=== PATIENT | male | born 1945 | race Caucasian/White ===

== ENCOUNTER 2016-11-04 12:16 | Observation (INO) | payer BC ==
[2016-11-04] MEDS ORDERED: Sodium Chloride 0.9% 10 ML Syringe FLUSH PRN ×2 (13:12→16:38)
--- NOTE | 2016-11-04 13:47 | CR ---
Chest 2V INDICATION: SOB, Bradycardia FINDINGS: Comparison 12/06/2010. The heart has increased in size and is now enlarged. Pulmonary vascu larity within normal limits. No focal infiltrate or pleural effusion.
--- NOTE | 2016-11-04 13:52 | EDM.PDOC ---
ED HPI GENERAL MEDICAL PROBLEM - General Chief Complaint: Respiratory Problem Stated Complaint: VERY SHORT OF BREATH Time Seen by Provider: 11/04/16 12:50 Source of Information: Reports: Patient History Limitations: Reports: No Limitations - History of Present Illness INITIAL COMMENTS - FREE TEXT/NARRATIVE: Patient presents today with complaints of not feeling well, becoming SOB with activity and weak. Onset: Today Onset Time: 08:00 Worsens with: Reports: Movement (He denies chest pain, syncope. ) - Related Data Allergies Allergy/AdvReac Type Severity Reaction Status Date / Time latex Allergy Rash Verified 11/04/16 12:32 Oybwoil-[id number]-Rnn Reductase AdvReac Muscle Verified 11/04/16 12:32 Inhibitor Aches Home Meds: Home Meds Citalopram Hydrobromide [Celexa] 10 tab PO DAILY 04/12/15 [History] Digoxin 125 mcg PO BID 04/12/15 [History] Insulin Aspart [NovoLOG] 10 units SQ ASDIRECTED 04/12/15 [History] Insulin Glarg,Human.Rec.Analog [Lantus Solostar] 56 unit SQ BEDTIME 04/12/15 [ History] Lisinopril 40 mg PO DAILY 04/12/15 [History] Metoprolol Tartrate 100 tab PO BID 04/12/15 [History] Tamsulosin [Flomax] 0.4 mg PO DAILY 04/12/15 [History] Verapamil HCl [Verapamil] 120 tab PO DAILY 04/12/15 [History] Warfarin [Coumadin] 5 tab PO DAILY 04/12/15 [History] Albuterol [Proventil HFA] 6.7 gm IN Q4HR PRN 11/04/16 [History] Aspirin [Lo-Dose Aspirin EC] 81 mg PO DAILY 11/04/16 [History] Finasteride [Proscar] 5 mg PO DAILY 11/04/16 [History] Tiotropium [Spiriva Handihaler] 18 mcg IN DAILY 11/04/16 [History] Past Medical History Cardiovascular History: Reports: Afib, High Cholesterol Respiratory History: Reports: COPD Genitourinary History: Reports: Other (See Below) Other Genitourinary History: kidney biopsy - Past Surgical History Musculoskeletal Surgical History: Reports: Arthroscopic Knee, Hip Replacement Social & Family History - Tobacco Use Smoking Status *Q: Never Smoker - Recreational Drug Use Recreational Drug Use: No ED ROS GENERAL - Review of Systems Review Of Systems: See Below Constitutional: Reports: Weakness. Denies: Fever, Chills, Malaise, Night Sweats , Diaphoresis HEENT: Reports: No Symptoms Respiratory: Reports: Shortness of Breath. Denies: Wheezing, Cough, Sputum, Hemoptysis Cardiovascular: Reports: Dyspnea on Exertion, Edema. Denies: Chest Pain, Lightheadedness, Orthopnea, Palpitations, PND, Syncope Endocrine: Reports: No Symptoms GI/Abdominal: Denies: Abdominal Pain, Constipation, Diarrhea, Nausea, Vomiting : Denies: Dysuria, Flank Pain, Frequency, Hematuria, Urgency, Urinary Retention Musculoskeletal: Reports: No Symptoms Skin: Reports: No Symptoms Neurological: Reports: Weakness. Denies: Confusion, Dizziness, Headache, Numbness, Paresthesia, Tingling, Change in Speech, Gait Disturbance Psychiatric: Reports: No Symptoms Hematologic/Lymphatic: Reports: No Symptoms Immunologic: Reports: No Symptoms ED EXAM, GENERAL - Physical Exam Exam: See Below Free Text/Narrative:: James presents today with complaints of SOB and weakness with activity. He states he has been using his [employer] vehicle to spray herbicide (Pastrure Pro) the past two days. He reports the vehicle has a cover and he does not come into direct contact with the spray. James states he has checked his blood glucose (113, 135) this am due to not feeling well. He also checked his blood pressure and pulse rate (HR 49). He reports his heart rate is usually faster. Exam Limited By: No Limitations General Appearance: Alert, WD/WN, No Apparent Distress Eye Exam: Bilateral Eye: EOMI, PERRL Ears: Normal External Exam, Normal Canal, Hearing Grossly Normal, Normal TMs Ear Exam: Bilateral Ear: Auricle Normal, Canal Normal, TM normal Nose: Normal Inspection, Normal Mucosa, No Blood Throat/Mouth: Normal Inspection, Normal Lips, Normal Teeth, Normal Gums, Normal Oropharynx, Normal Voice, No Airway Compromise Head: Atraumatic, Normocephalic Neck: Normal Inspection, Supple, Non-Tender, Full Range of Motion Respiratory/Chest: No Respiratory Distress, Lungs Clear, Normal Breath Sounds, No Accessory Muscle Use, Chest Non-Tender Cardiovascular: Bradycardia, Other (Murmur noted. ) Peripheral Pulses: 1+: Radial (L), Radial (R), Dorsalis Pedis (L), Dorsalis Pedis (R) GI/Abdominal: Normal Bowel Sounds, Soft, Non-Tender, No Organomegaly, No Distention, No Abnormal Bruit, No Mass, Other (Large round abdomen. ) Back Exam: Normal Inspection, Full Range of Motion. No: CVA Tenderness (R), CVA Tenderness (L) Extremities: Normal Inspection, Normal Range of Motion, Non-Tender, Normal Capillary Refill, Pedal Edema (Edema 1 to 2 +. ) Neurological: Alert, Oriented, CN II-XII Intact, Normal Cognition, Normal Gait, Normal Reflexes, No Motor/Sensory Deficits Psychiatric: Normal Affect, Normal Mood Skin Exam: Warm, Dry, Intact, Normal Color, No Rash Lymphatic: No Adenopathy EKG INTERPRETATION EKG Date: 11/04/16 Rhythm: A-Fib Rate (Beats/Min): 40 Course - Vital Signs Last Recorded V/S: Last Vital Signs Temp 36.6 C 11/04/16 16:38 Pulse 54 L 11/04/16 16:38 Resp 16 11/04/16 16:38 BP 147/79 H 11/04/16 16:38 Pulse Ox 94 L 11/04/16 16:38 - Orders/Labs/Meds Orders: Active Orders 24 hr Category Date Time Status Telemetry Monitoring [Cardiac Monitoring] [RC] .As Care 11/04/16 13:09 Inactive Directed EKG 12 Lead [EK] Routine Ther 11/04/16 13:09 Stop Req Medication Orders Acetaminophen (Tylenol) 650 mg PO Q4H PRN PRN Reason: Pain (Mild 1-3)/fever Albuterol (Ventolin Hfa) 0 gm INH Q4H PRN PRN Reason: breathing Albuterol (Proventil Neb Soln) 2.5 mg NEB Q4H PRN PRN Reason: Shortness Of Breath/wheezing Aspirin (Halfprin) 81 mg PO DAILY [facility] Citalopram Hydrobromide (Celexa) 0 mg PO DAILY [facility] Dextrose (Glutose 15) 15 gm PO ONETIME PRN PRN Reason: Hypoglycemia Dextrose/Water (Dextrose 50% In Water) 50 ml IV ONETIME PRN PRN Reason: Hypoglycemia Docusate Sodium (Colace) 100 mg PO BID PRN PRN Reason: Constipation Finasteride (Proscar) 5 mg PO DAILY [facility] Insulin Aspart (Novolog) 0 unit SUBCUT ASDIRECTED [facility] PRN Reason: Protocol Last Admin: 11/04/16 17:42 Dose: 2 units Insulin Detemir (Levemir) 56 unit SUBCUT BEDTIME [facility] Magnesium Hydroxide (Milk Of Magnesia) 30 ml PO Q12H PRN PRN Reason: Constipation Ondansetron HCl (Zofran) 4 mg IV Q4H PRN PRN Reason: Nausea/Vomiting Oxycodone HCl (Oxycodone) 5 mg PO Q4H PRN PRN Reason: Pain (moderate 4-6) Lisinopril 40mg Tabs (Pom) 0 each PO DAILY [facility] Polyethylene Glycol (Miralax) 17 gm PO DAILY PRN PRN Reason: Constipation Sodium Chloride (Saline Flush) 10 ml FLUSH ASDIRECTED PRN PRN Reason: Keep Vein Open Tamsulosin HCl (Flomax) 0.4 mg PO DAILY [facility] Tiotropium Marrero (Spiriva Handihaler) 18 mcg INH DAILY [facility] Warfarin Sodium (Coumadin) 5 mg PO SuTuWeThSa@1300 [facility] Warfarin Sodium (Coumadin) 0 mg PO MoFr@1300 [facility] Zolpidem Tartrate (Ambien) 5 mg PO BEDTIME PRN PRN Reason: Sleep Labs: Laboratory Tests 11/04/16 11/04/16 11/04/16 Range/Units 13:22 13:22 13:22 WBC 6.5 (4.5-11.0) K/uL RBC 5.23 (4.30-5.90) M/uL Hgb 16.2 H (12.0-15.0) g/dL Hct 48.2 (40.0-54.0) % MCV 92 (80-98) fL MCH 31 (27-31) pg MCHC 34 (32-36) % Plt Count 161 (150-400) K/uL Neut % (Auto) 70 H (36-66) % Lymph % (Auto) 18 L (24-44) % [place] % (Auto) 10 H (2-6) % Eos % (Auto) 2 (2-4) % Baso % (Auto) 0 (0-1) % PT (9.5-12.0) sec INR (0.80-1.20) APTT (27.0-36.0) sec Sodium 136 L (140-148) mmol/L Potassium 4.7 (3.6-5.2) mmol/L Chloride 101 (100-108) mmol/L Carbon Dioxide 30 (21-32) mmol/L Anion Gap 9.7 (5.0-14.0) mmol/L BUN 21 H (7-18) mg/dL Creatinine 1.3 (0.8-1.3) mg/dL Est Cr Clr Drug Dosing 55.37 mL/min Estimated GFR (MDRD) 55 L (>60) Glucose 127 H (74-106) mg/dL Calcium 8.5 (8.5-10.1) mg/dL Total Bilirubin 0.7 (0.2-1.0) mg/dL AST 23 (15-37) U/L ALT 23 (12-78) U/L Alkaline Phosphatase 113 (46-116) U/L Troponin I < 0.017 (0.000-0.056) ng/mL Xlw-D-Wmiqoozkiyx Pept 1043 H (5-125) pg/mL Total Protein 6.7 (6.4-8.2) g/dL Albumin 3.4 (3.4-5.0) g/dL Globulin 3.3 (2.3-3.5) g/dL Albumin/Globulin Ratio 1.0 L (1.2-2.2) TSH, Ultra Sensitive 2.579 (0.358-3.740) uIU/mL Urine Color Urine Appearance Urine pH (4.5-8.0) Ur Specific [place] (1.008-1.030) Urine Protein (NEGATIVE) mg/dL Urine Glucose (UA) (NEGATIVE) mg/dL Urine Ketones (NEGATIVE) mg/dL Urine Occult Blood (NEGATIVE) Urine Nitrite (NEGAITVE) Urine Bilirubin (NEGATIVE) Urine Urobilinogen (NORMAL) mg/dL Ur Leukocyte Esterase (NEGATIVE) Urine RBC (0-5) Urine WBC (0-5) Ur Epithelial Cells Amorphous Sediment Urine Bacteria Urine Mucus Digoxin 1.48 (0.90-2.00) ng/mL 11/04/16 11/04/16 Range/Units 13:22 13:22 WBC (4.5-11.0) K/uL RBC (4.30-5.90) M/uL Hgb (12.0-15.0) g/dL Hct (40.0-54.0) % MCV (80-98) fL MCH (27-31) pg MCHC (32-36) % Plt Count (150-400) K/uL Neut % (Auto) (36-66) % Lymph % (Auto) (24-44) % [place] % (Auto) (2-6) % Eos % (Auto) (2-4) % Baso % (Auto) (0-1) % PT 28.8 H (9.5-12.0) sec INR 2.59 H (0.80-1.20) APTT 33.6 (27.0-36.0) sec Sodium (140-148) mmol/L Potassium (3.6-5.2) mmol/L Chloride (100-108) mmol/L Carbon Dioxide (21-32) mmol/L Anion Gap (5.0-14.0) mmol/L BUN (7-18) mg/dL Creatinine (0.8-1.3) mg/dL Est Cr Clr Drug Dosing mL/min Estimated GFR (MDRD) (>60) Glucose (74-106) mg/dL Calcium (8.5-10.1) mg/dL Total Bilirubin (0.2-1.0) mg/dL AST (15-37) U/L ALT (12-78) U/L Alkaline Phosphatase (46-116) U/L Troponin I (0.000-0.056) ng/mL Wnq-[id number]-[id number] Pept (5-125) pg/mL Total Protein (6.4-8.2) g/dL Albumin (3.4-5.0) g/dL Globulin (2.3-3.5) g/dL Albumin/Globulin Ratio (1.2-2.2) TSH, Ultra Sensitive (0.358-3.740) uIU/mL Urine Color Yellow Urine Appearance Clear Urine pH 6.0 (4.5-8.0) Ur Specific [place] 1.010 (1.008-1.030) Urine Protein Negative (NEGATIVE) mg/dL Urine Glucose (UA) Normal (NEGATIVE) mg/dL Urine Ketones Negative (NEGATIVE) mg/dL Urine Occult Blood Negative (NEGATIVE) Urine Nitrite Negative (NEGAITVE) Urine Bilirubin Negative (NEGATIVE) Urine Urobilinogen Normal (NORMAL) mg/dL Ur Leukocyte Esterase Negative (NEGATIVE) Urine RBC Not seen (0-5) Urine WBC Not seen (0-5) Ur Epithelial Cells Not seen Amorphous Sediment Rare Urine Bacteria Not seen Urine Mucus Not seen Digoxin (0.90-2.00) ng/mL Meds: Medications Generic Name Dose Route Start Last Admin Trade Name Freq PRN Reason Stop Dose Admin Acetaminophen 650 mg 11/04/16 16:38 Tylenol PO Q4H PRN Pain (Mild 1-3)/fever Albuterol 0 gm 11/04/16 16:38 Ventolin Hfa INH Q4H PRN breathing Albuterol 2.5 mg 11/04/16 16:38 Proventil Neb Soln NEB Q4H PRN Shortness Of Breath/wheezing Aspirin 81 mg 11/05/16 09:00 Halfprin PO DAILY [facility] Citalopram Hydrobromide 0 mg 11/05/16 09:00 Celexa PO DAILY [facility] Dextrose 15 gm 11/04/16 16:38 Glutose 15 PO ONETIME PRN Hypoglycemia Dextrose/Water 50 ml 11/04/16 16:38 Dextrose 50% In Water IV ONETIME PRN Hypoglycemia Docusate Sodium 100 mg 11/04/16 16:38 Colace PO BID PRN Constipation Finasteride 5 mg 11/05/16 09:00 Proscar PO DAILY [facility] Insulin Aspart 0 unit 11/04/16 16:38 11/04/16 17:42 Novolog SUBCUT 2 units ASDIRECTED [facility] Administration Protocol Insulin Detemir 56 unit 11/04/16 21:00 Levemir SUBCUT BEDTIME [facility] Magnesium Hydroxide 30 ml 11/04/16 16:38 Milk Of Magnesia PO Q12H PRN Constipation Ondansetron HCl 4 mg 11/04/16 16:38 Zofran IV Q4H PRN Nausea/Vomiting Oxycodone HCl 5 mg 11/04/16 16:38 Oxycodone PO Q4H PRN Pain (moderate 4-6) Lisinopril 40mg Tabs 0 each 11/05/16 09:00 Pom PO DAILY [facility] Polyethylene Glycol 17 gm 11/04/16 16:38 Miralax PO DAILY PRN Constipation Sodium Chloride 10 ml 11/04/16 16:38 Saline Flush FLUSH ASDIRECTED PRN Keep Vein Open Tamsulosin HCl 0.4 mg 11/05/16 09:00 Flomax PO DAILY [facility] Tiotropium Marrero 18 mcg 11/05/16 09:00 Spiriva Handihaler INH DAILY [facility] Warfarin Sodium 5 mg 11/05/16 13:00 Coumadin PO SuTuWeThSa@1300 [facility] Warfarin Sodium 0 mg 11/08/16 13:00 Coumadin PO MoFr@1300 [facility] Zolpidem Tartrate 5 mg 11/04/16 16:38 Ambien PO BEDTIME PRN Sleep Discontinued Medications Generic Name Dose Route Start Last Admin Trade Name Frehitesh PRN Reason Stop Dose Admin Furosemide 40 mg 11/04/16 14:22 11/04/16 14:43 Lasix IVPUSH 11/04/16 14:23 40 mg ONETIME ONE Administration Sodium Chloride 10 ml 11/04/16 13:12 11/04/16 13:52 Saline Flush FLUSH 10 ml ASDIRECTED PRN Administration Keep Vein Open - Re-Assessments/Exams Free Text/Narrative Re-Assessment/Exam: 11/04/16 14:16 Dr. Lockhart notified of patient status. Tech for Echo not here any longer, we will schedule patient for this . Dr. Lockhart states we can admit patient for observation. Patient and his in agreement with plan to be admitted. Departure - Departure Time of Disposition: 15:30 Disposition: Admitted As Inpatient 68 Condition: Fair Clinical Impression: Bradycardia, Atrial fibrillation - Discharge Information - My Orders Last 24 Hours: My Active Orders 11/04/16 13:09 Telemetry Monitoring [Cardiac Monitoring] [RC] .As Directed EKG 12 Lead [EK] Routine - Assessment/Plan Last 24 Hours: My Active Orders 11/04/16 13:09 Telemetry Monitoring [Cardiac Monitoring] [RC] .As Directed EKG 12 Lead [EK] Routine Assessment:: Bradycardia History of atrial fibrillation Plan: Admit as observation per Dr. Lockhart.
[2016-11-04] MEDS ORDERED: Furosemide 40 MG/4 ML VIAL IVPUSH ONE (14:22)
--- NOTE | 2016-11-04 16:19 | PCM.HP ---
H&P History of Present Illness - General Date of Service: 11/04/16 Admit Problem/Dx: Admission Diagnosis/Problem Admission Diagnosis/Problem Bradycardia Source of Information: Patient, Family, Provider, RN Notes Reviewed History Limitations: Reports: No Limitations - History of Present Illness Initial Comments - Free Text/Narative: This patient is a 71-year-old gentleman who is admitted through the emergency department with shortness of breath and weakness secondary to bradycardia. He has a known and long-standing history of atrial fibrillation. Currently on 3 rate slowing medications including metoprolol, verapamil, and digoxin. Over the past few months he is noted a progressive decline in his energy level with more weakness and fatigue. Today when he awoke noted shortness of breath with fairly minimal exertion as well as symptoms of lightheadedness and weakness. He denies any symptoms of chest pain or pressure. On evaluation in the emergency department he was noted to be in atrial fibrillation with slow heart rates dipping into the upper 30s and low 40s. He denies PND, orthopnea, but has had some increase in peripheral edema. There is no underlying history of coronary artery disease and his troponin level is within normal range. - Related Data Allergies/Adverse Reactions: Allergies Allergy/AdvReac Type Severity Reaction Status Date / Time latex Allergy Rash Verified 11/04/16 12:32 Dorhmad-Byx-Ymm Reductase AdvReac Muscle Verified 11/04/16 12:32 Inhibitor Aches Home Medications: Home Meds Citalopram Hydrobromide [Celexa] 10 tab PO DAILY 04/12/15 [History] Digoxin 125 mcg PO BID 04/12/15 [History] Insulin Aspart [NovoLOG] 10 units SQ ASDIRECTED 04/12/15 [History] Insulin Glarg,Human.Rec.Analog [Lantus Solostar] 56 unit SQ BEDTIME 04/12/15 [ History] Lisinopril 40 mg PO DAILY 04/12/15 [History] Metoprolol Tartrate 100 tab PO BID 04/12/15 [History] Tamsulosin [Flomax] 0.4 mg PO DAILY 04/12/15 [History] Verapamil HCl [Verapamil] 120 tab PO DAILY 04/12/15 [History] Warfarin [Coumadin] 5 tab PO DAILY 04/12/15 [History] Albuterol [Proventil HFA] 6.7 gm IN Q4HR PRN 11/04/16 [History] Aspirin [Lo-Dose Aspirin EC] 81 mg PO DAILY 11/04/16 [History] Finasteride [Proscar] 5 mg PO DAILY 11/04/16 [History] Tiotropium [Spiriva Handihaler] 18 mcg IN DAILY 11/04/16 [History] Past Medical History Cardiovascular History: Reports: Afib, High Cholesterol Respiratory History: Reports: COPD Genitourinary History: Reports: Other (See Below) Other Genitourinary History: kidney biopsy - Past Surgical History Musculoskeletal Surgical History: Reports: Arthroscopic Knee, Hip Replacement Social & Family History - Tobacco Use Smoking Status *Q: Never Smoker - Recreational Drug Use Recreational Drug Use: No H&P Review of Systems - Review of Systems: Review Of Systems: See Below General: Reports: Weakness. Denies: Fever, Chills HEENT: Reports: No Symptoms Pulmonary: Reports: Shortness of Breath. Denies: Wheezing, Pleuritic Chest Pain , Cough, Sputum, Hemoptysis Cardiovascular: Reports: Dyspnea on Exertion, Edema, Lightheadedness. Denies: Chest Pain, Palpitations, Orthopnea, PND, Syncope Gastrointestinal: Reports: No Symptoms Genitourinary: Reports: No Symptoms Musculoskeletal: Reports: No Symptoms Skin: Reports: No Symptoms Psychiatric: Reports: No Symptoms Neurological: Reports: No Symptoms Hematologic/Lymphatic: Reports: No Symptoms Immunologic: Reports: No Symptoms Exam - Exam Exam: See Below - Vital Signs Vital Signs: Last Vital Signs Temp 97.5 F 11/04/16 12:46 Pulse 55 L 11/04/16 12:46 Resp 16 11/04/16 12:46 BP 177/91 H 11/04/16 12:46 Pulse Ox 99 11/04/16 12:46 Weight: 229 lb 8.019 oz - Exam Quality Assessment: Supplemental Oxygen, DVT Prophylaxis General: Alert, Oriented, Cooperative, Mild Distress HEENT: Conjunctiva Clear, Hearing Intact, Mucosa Moist & [place], Normal Nasal Septum, Posterior Pharynx Clear, Pupils Equal Neck: Supple, Trachea Midline, +2 Carotid Pulse wo Bruit Lungs: Clear to Auscultation, Normal Respiratory Effort Cardiovascular: Normal S1, Normal S2, Irregular Rhythm, Bradycardia. No: Systolic Murmur, Diastolic Murmur Abdomen: Normal Bowel Sounds, Soft Back Exam: Normal Inspection, Full Range of Motion, NT Extremities: Edema Skin: Warm, Dry, Intact Neurological: Cranial Nerves Intact, Strength Equal Bilateral, Normal Speech, Normal Tone, Sensation Intact. No: Focal Deficit Neuro Extensive - Mental Status: Alert, Oriented x3, Normal Mood/Affect, Normal Cognition, Memory Intact - Patient Data Lab Results Last 24 hrs: Laboratory Results - last 24 hr 11/04/16 11/04/16 11/04/16 Range/Units 13:22 13:22 13:22 WBC 6.5 (4.5-11.0) K/uL RBC 5.23 (4.30-5.90) M/uL Hgb 16.2 H (12.0-15.0) g/dL Hct 48.2 (40.0-54.0) % MCV 92 (80-98) fL MCH 31 (27-31) pg MCHC 34 (32-36) % Plt Count 161 (150-400) K/uL Neut % (Auto) 70 H (36-66) % Lymph % (Auto) 18 L (24-44) % [place] % (Auto) 10 H (2-6) % Eos % (Auto) 2 (2-4) % Baso % (Auto) 0 (0-1) % PT (9.5-12.0) sec INR (0.80-1.20) APTT (27.0-36.0) sec Sodium 136 L (140-148) mmol/L Potassium 4.7 (3.6-5.2) mmol/L Chloride 101 (100-108) mmol/L Carbon Dioxide 30 (21-32) mmol/L Anion Gap 9.7 (5.0-14.0) mmol/L BUN 21 H (7-18) mg/dL Creatinine 1.3 (0.8-1.3) mg/dL Est Cr Clr Drug Dosing 55.37 mL/min Estimated GFR (MDRD) 55 L (>60) Glucose 127 H (74-106) mg/dL Calcium 8.5 (8.5-10.1) mg/dL Total Bilirubin 0.7 (0.2-1.0) mg/dL AST 23 (15-37) U/L ALT 23 (12-78) U/L Alkaline Phosphatase 113 (46-116) U/L Troponin I < 0.017 (0.000-0.056) ng/mL Egp-H-Zxcwqynarvt Pept 1043 H (5-125) pg/mL Total Protein 6.7 (6.4-8.2) g/dL Albumin 3.4 (3.4-5.0) g/dL Globulin 3.3 (2.3-3.5) g/dL Albumin/Globulin Ratio 1.0 L (1.2-2.2) TSH, Ultra Sensitive 2.579 (0.358-3.740) uIU/mL Urine Color Urine Appearance Urine pH (4.5-8.0) Ur Specific [place] (1.008-1.030) Urine Protein (NEGATIVE) mg/dL Urine Glucose (UA) (NEGATIVE) mg/dL Urine Ketones (NEGATIVE) mg/dL Urine Occult Blood (NEGATIVE) Urine Nitrite (NEGAITVE) Urine Bilirubin (NEGATIVE) Urine Urobilinogen (NORMAL) mg/dL Ur Leukocyte Esterase (NEGATIVE) Urine RBC (0-5) Urine WBC (0-5) Ur Epithelial Cells Amorphous Sediment Urine Bacteria Urine Mucus Digoxin 1.48 (0.90-2.00) ng/mL 11/04/16 11/04/16 Range/Units 13:22 13:22 WBC (4.5-11.0) K/uL RBC (4.30-5.90) M/uL Hgb (12.0-15.0) g/dL Hct (40.0-54.0) % MCV (80-98) fL MCH (27-31) pg MCHC (32-36) % Plt Count (150-400) K/uL Neut % (Auto) (36-66) % Lymph % (Auto) (24-44) % [place] % (Auto) (2-6) % Eos % (Auto) (2-4) % Baso % (Auto) (0-1) % PT 28.8 H (9.5-12.0) sec INR 2.59 H (0.80-1.20) APTT 33.6 (27.0-36.0) sec Sodium (140-148) mmol/L Potassium (3.6-5.2) mmol/L Chloride (100-108) mmol/L Carbon Dioxide (21-32) mmol/L Anion Gap (5.0-14.0) mmol/L BUN (7-18) mg/dL Creatinine (0.8-1.3) mg/dL Est Cr Clr Drug Dosing mL/min Estimated GFR (MDRD) (>60) Glucose (74-106) mg/dL Calcium (8.5-10.1) mg/dL Total Bilirubin (0.2-1.0) mg/dL AST (15-37) U/L ALT (12-78) U/L Alkaline Phosphatase (46-116) U/L Troponin I (0.000-0.056) ng/mL Cwb-H-Clkuekditae Pept (5-125) pg/mL Total Protein (6.4-8.2) g/dL Albumin (3.4-5.0) g/dL Globulin (2.3-3.5) g/dL Albumin/Globulin Ratio (1.2-2.2) TSH, Ultra Sensitive (0.358-3.740) uIU/mL Urine Color Yellow Urine Appearance Clear Urine pH 6.0 (4.5-8.0) Ur Specific [place] 1.010 (1.008-1.030) Urine Protein Negative (NEGATIVE) mg/dL Urine Glucose (UA) Normal (NEGATIVE) mg/dL Urine Ketones Negative (NEGATIVE) mg/dL Urine Occult Blood Negative (NEGATIVE) Urine Nitrite Negative (NEGAITVE) Urine Bilirubin Negative (NEGATIVE) Urine Urobilinogen Normal (NORMAL) mg/dL Ur Leukocyte Esterase Negative (NEGATIVE) Urine RBC Not seen (0-5) Urine WBC Not seen (0-5) Ur Epithelial Cells Not seen Amorphous Sediment Rare Urine Bacteria Not seen Urine Mucus Not seen Digoxin (0.90-2.00) ng/mL Result Diagrams: 11/04/16 13:22 11/04/16 13:22 *Q Meaningful Use (ADM) - VTE *Q VTE Criteria *Q: VTE Pharmacological Contraindications *Q: High INR Value - VTE Risk Assess *Q Each Risk Factor Represents 1 Point: Swollen Legs, Current, Obesity (BMI greater than 30) Total Score 1 Point Risk Factors: 2 Each Risk Factor Represents 2 Points: Age 60 - 74 Years Total Score 2 Point Risk Factors: 2 Each Risk Factor Represents 3 Points: None Total Score 3 Point Risk Factors: 0 Each Risk Factor Represents 5 Points: None Total Score 5 Point Risk Factors: 0 Venous Thromboembolism Risk Factor Score *Q: 4 - Stroke *Q Stroke Criteria *Q: - AMI *Q AMI Criteria *Q: Problem List Initiated/Reviewed/Updated: Yes Orders Last 24hrs: Active Orders 24 hr Category Date Time Status Patient Status Manage Transfer [TRANSFER] Routine ADT 11/04/16 16:01 Ordered Cardiac Monitoring [RC] .As Directed Care 11/04/16 16:01 Ordered EKG Documentation Completion [RC] ASDIRECTED Care 11/04/16 13:09 Active Telemetry Monitoring [Cardiac Monitoring] [RC] .As Care 11/04/16 13:09 Active Directed Sodium Chloride 0.9% [Saline Flush] Med 11/04/16 13:12 Active 10 ml FLUSH ASDIRECTED PRN Saline Lock Insert [OM.PC] Routine Oth 11/04/16 13:12 Ordered Resuscitation Status Routine Resus Stat 11/04/16 16:04 Ordered EKG 12 Lead [EK] Routine Ther 11/04/16 13:09 Ordered Medication Orders Sodium Chloride (Saline Flush) 10 ml FLUSH ASDIRECTED PRN PRN Reason: Keep Vein Open Last Admin: 11/04/16 13:52 Dose: 10 ml Assessment/Plan Comment:: ASSESSMENT AND PLAN SYMPTOMATIC BRADYCARDIA-by history he is likely been developing this over the past few months, significantly worse today with shortness of breath on minimal exertion as well as lightheadedness. Evaluation in the emergency department shows atrial fibrillation with slow rate, often dipping into the 40s and upper 30s. He's had the atrial fibrillation for prolonged period of time and it's likely that he is develop some underlying conduction disease. -Monitor in ICU -Hold metoprolol, verapamil, and digoxin until a.m. -Plan to resume at least metoprolol in a.m. perhaps of the lower dose depending on heart rate. -Serial troponin levels TYPE 2 DIABETES MELLITUS -Continue outpatient dose of long-acting insulin -4 times a day glucometers -Moderate dose sliding scale NovoLog ATRIAL FIBRILLATION -Hold rate slowing medication as above -Continue oral anticoagulation with warfarin -Recheck INR in a.m. COPD-no evidence of acute exacerbation or underlying infection on exam and by history -Continue outpatient medical therapy CHRONIC KIDNEY DISEASE STAGE III -Closely monitor her kidney function and urine output during hospital stay MAINTENANCE ISSUES -DVT prophylaxis; current therapy with warfarin should provide adequate DVT prophylaxis -GI prophylaxis; not indicated -Laboy catheter; not indicated -Nutrition; consistent carbohydrate and 2 g sodium diet -Nicotinic dependence; not required CODE STATUS-FULL CODE ADMISSION STATUS-this patient will be admitted to observation status, expect no more than a one night hospital stay for evaluation and management of problems as outlined above. DISPOSITION-anticipate discharge to home after the hospital stay. PRIMARY CARE PROVIDER-Dr. Orellana
[2016-11-04] MEDS ORDERED: Zolpidem 5 MG Tab PO PRN (16:38)
[2016-11-04] MEDS ORDERED: Glucose Gel 15 GM in 37.5 GM Tube PO PRN (16:38)
[2016-11-04] MEDS ORDERED: Polyethylene Glycol 3350 Powder 17 GM Packet PO PRN (16:38)
[2016-11-04] MEDS ORDERED: Ondansetron 4 MG/2 ML SDV IV PRN (16:38)
[2016-11-04] MEDS ORDERED: Albuterol 0.083% 2.5 MG/3 ML Neb Soln NEB PRN (16:38)
[2016-11-04] MEDS ORDERED: Magnesium Hydroxide 400 MG/5 ML Susp 30 ML Cup PO PRN (16:38)
[2016-11-04] MEDS ORDERED: Albuterol 8 GM Inhaler INH PRN (16:38)
[2016-11-04] MEDS ORDERED: 50% Dextrose in Water 50 ML Syringe IV PRN (16:38)
[2016-11-04] MEDS ORDERED: Docusate Sodium 100 MG Cap PO PRN (16:38)
[2016-11-04] MEDS ORDERED: Acetaminophen 325 MG Tab PO PRN (16:38)
[2016-11-04] MEDS ORDERED: oxyCODONE 5 MG Tab PO PRN (16:38)
[2016-11-04] MEDS: Insulin Aspart 100 Units/ML 3 ML Pen SUBCUT SCH ×2 (17:42→21:12)
[2016-11-04] MEDS: Insulin Detemir 100 Units/ML 3 ML Pen SUBCUT SCH (21:13)
[2016-11-05] MEDS: Tiotropium Inhaler 18 MCG Inhalation Powder Cap Kit of 5 INH SCH (08:17)
[2016-11-05] MEDS: CITALOPRAM 10 MG PO SCH (08:24)
[2016-11-05] MEDS: Tamsulosin 0.4 MG Cap.ER**POM PO SCH (08:25)
[2016-11-05] MEDS: Aspirin 81 MG Tab.EC**POM PO SCH (08:26)
[2016-11-05] MEDS: Finasteride 5 MG Tab**POM PO SCH (08:26)
[2016-11-05] MEDS: LISINOPRIL 40 MG PO SCH (08:27)
[2016-11-05] MEDS ORDERED: Metoprolol Tartrate 50 MG Tab PO SCH (09:45)
[2016-11-05] MEDS: METOPROLOL TART 100MG (PTOM) PO SCH ×2 (10:08→20:52)
--- NOTE | 2016-11-05 10:29 | PCM.PN ---
- General Info Date of Service: 11/05/16 Functional Status: Reports: tolerating diet, ambulating - Review of Systems General: Denies: Fever, Chills Pulmonary: Reports: no symptoms Cardiovascular: Reports: Edema, Lightheadedness. Denies: Chest Pain, Palpitations, Dyspnea on Exertion, Orthopnea, PND Gastrointestinal: Reports: No symptoms Systems Review Comment:: Mr. Ayon is a 71-year-old gentleman admitted yesterday with symptomatic bradycardia. Rate slowing medications have been held since admission and his heart rate is come up into the 50s to 70s, from the 30s to 50s noted yesterday. His shortness of breath is resolved and he had a good diuresis yesterday with Lasix given in the emergency department. He has noted slight lightheadedness this morning but denies any chest pain or pressure, serial troponin levels were within normal range. - Patient Data Vitals - most recent: Last Vital Signs Temp 96.9 F 11/05/16 08:28 Pulse 76 11/05/16 08:28 Resp 19 11/05/16 08:28 BP 178/72 H 11/05/16 08:28 Pulse Ox 97 11/05/16 08:28 Weight - most recent: 229 lb 4.492 oz I&O - last 24 hours: Intake & Output 11/04/16 11/05/16 11/05/16 22:59 06:59 14:59 Intake Total 240 210 360 Output Total 2000 500 300 Balance -1760 -290 60 Lab Results last 24 hrs: Laboratory Results - last 24 hr 11/04/16 11/05/16 11/05/16 Range/Units 19:12 04:40 04:40 PT 29.8 H (9.5-12.0) sec INR 2.67 H (0.80-1.20) Troponin I < 0.017 < 0.017 (0.000-0.056) ng/mL Med Orders - Current: Current Medications Acetaminophen (Tylenol) 650 mg PO Q4H PRN PRN Reason: Pain (Mild 1-3)/fever Albuterol (Ventolin Hfa) 0 gm INH Q4H PRN PRN Reason: breathing Albuterol (Proventil Neb Soln) 2.5 mg NEB Q4H PRN PRN Reason: Shortness Of Breath/wheezing Aspirin (Halfprin) 81 mg PO DAILY CARISSA Last Admin: 11/05/16 08:26 Dose: 81 mg Citalopram Hydrobromide (Celexa) 0 mg PO DAILY [facility] Last Admin: 11/05/16 08:24 Dose: 20 mg Dextrose (Glutose 15) 15 gm PO ONETIME PRN PRN Reason: Hypoglycemia Dextrose/Water (Dextrose 50% In Water) 50 ml IV ONETIME PRN PRN Reason: Hypoglycemia Docusate Sodium (Colace) 100 mg PO BID PRN PRN Reason: Constipation Finasteride (Proscar) 5 mg PO DAILY [facility] Last Admin: 11/05/16 08:26 Dose: 5 mg Furosemide (Lasix) 20 mg IVPUSH NOW ONE Stop: 11/05/16 10:23 Insulin Aspart (Novolog) 0 unit SUBCUT ASDIRECTED [facility] PRN Reason: Protocol Last Admin: 11/04/16 21:12 Dose: 2 units Insulin Detemir (Levemir) 56 unit SUBCUT BEDTIME [facility] Last Admin: 11/04/16 21:13 Dose: 56 units Magnesium Hydroxide (Milk Of Magnesia) 30 ml PO Q12H PRN PRN Reason: Constipation Ondansetron HCl (Zofran) 4 mg IV Q4H PRN PRN Reason: Nausea/Vomiting Oxycodone HCl (Oxycodone) 5 mg PO Q4H PRN PRN Reason: Pain (moderate 4-6) Lisinopril 40mg Tabs (Pom) 0 each PO DAILY [facility] Last Admin: 11/05/16 08:27 Dose: 1 each Metoprolol Tart (100mg (Ptom)) 0 each PO BID [facility] Last Admin: 11/05/16 10:08 Dose: 1 each Polyethylene Glycol (Miralax) 17 gm PO DAILY PRN PRN Reason: Constipation Sodium Chloride (Saline Flush) 10 ml FLUSH ASDIRECTED PRN PRN Reason: Keep Vein Open Tamsulosin HCl (Flomax) 0.4 mg PO DAILY [facility] Last Admin: 11/05/16 08:25 Dose: 0.4 mg Tiotropium [place] (Spiriva Handihaler) 18 mcg INH DAILY [facility] Last Admin: 11/05/16 08:17 Dose: 1 cap Warfarin Sodium (Coumadin) 5 mg PO SuTuWeThSa@1300 [facility] Warfarin Sodium (Coumadin) 0 mg PO MoFr@1300 [facility] Zolpidem Tartrate (Ambien) 5 mg PO BEDTIME PRN PRN Reason: Sleep Discontinued Medications Furosemide (Lasix) 40 mg IVPUSH ONETIME ONE Stop: 11/04/16 14:23 Last Admin: 11/04/16 14:43 Dose: 40 mg Sodium Chloride (Saline Flush) 10 ml FLUSH ASDIRECTED PRN PRN Reason: Keep Vein Open Last Admin: 11/04/16 13:52 Dose: 10 ml - Exam Quality Assessment: DVT prophylaxis General: alert, oriented, cooperative, no acute distress Lungs: Clear to auscultation, Normal respiratory effort Cardiovascular: Regular Rate, Regular Rhythm, No Murmurs Abdomen: bowel sounds present, soft, no tenderness, no distension Extremities: edema Skin: warm, dry, intact - Problem List Review Problem List Initiated/Reviewed/Updated: Yes - My Orders Last 24 Hours: My Active Orders 11/04/16 16:04 Resuscitation Status Routine 11/04/16 16:38 Patient Status [ADT] Routine Blood Glucose Check, Bedside [RC] QIDACANDBED Communication Order [RC] ASDIRECTED Diabetes Education [RC] Click to Edit Intake and Output [RC] QSHIFT Notify Provider Vital Signs [RC] ASDIRECTED Notify Provider [RC] PRN Oxygen Therapy [RC] PRN RT Aerosol Therapy [RC] ASDIRECTED Up With Assistance [RC] ASDIRECTED VTE/DVT Education [RC] Per Unit Routine Vital Signs [RC] Q2H Acetaminophen [Tylenol] 650 mg PO Q4H PRN Albuterol [Proventil Neb Soln] 2.5 mg NEB Q4H PRN Dextrose 50% in Water 50 ml IV ONETIME PRN Dextrose [Glutose 15] 15 gm PO ONETIME PRN Docusate Sodium [Colace] 100 mg PO BID PRN Insulin Aspart [NovoLOG] See Protocol SUBCUT ASDIRECTED Magnesium Hydroxide [Milk of Magnesia] 30 ml PO Q12H PRN Ondansetron [Zofran] 4 mg IV Q4H PRN Polyethylene Glycol 3350 [MiraLAX] 17 gm PO DAILY PRN Sodium Chloride 0.9% [Saline Flush] 10 ml FLUSH ASDIRECTED PRN Zolpidem [Ambien] 5 mg PO BEDTIME PRN oxyCODONE 5 mg PO Q4H PRN Saline Lock Insert [OM.PC] Routine VTE Pharmacological Contraindications [AST] Per Unit Routine 11/04/16 Lunch 2 Gram Sodium Diet [DIET] Consistent Carbohydrate Diet [DIET] 11/05/16 10:00 Patient's Own Medication [Ptom] 0 each PO BID 11/05/16 10:22 Furosemide [Lasix] 20 mg IVPUSH NOW ONE 11/06/16 07:30 GLUCOSE POC LAB TO COLLECT [POC] QIDACANDBED 11/06/16 11:30 GLUCOSE POC LAB TO COLLECT [POC] QIDACANDBED 11/06/16 16:30 GLUCOSE POC LAB TO COLLECT [POC] QIDACANDBED 11/06/16 21:00 GLUCOSE POC LAB TO COLLECT [POC] QIDACANDBED 11/07/16 07:30 GLUCOSE POC LAB TO COLLECT [POC] QIDACANDBED 11/08/16 13:00 Warfarin [Coumadin] 0 mg PO MoFr@1300 - Plan Plan:: ASSESSMENT AND PLAN SYMPTOMATIC BRADYCARDIA-shortness of breath has resolved, this morning notes mild lightheadedness. Heart rate has improved and now is in the range of 70s to 50s. We'll plan to resume metoprolol today monitor heart rate, continue to hold verapamil and digoxin. -Furosemide 20 mg IV now -Monitor in ICU -Resume metoprolol 100 mg by mouth twice a day -Hold verapamil, and digoxin until a.m. -Plan to resume at least metoprolol in a.m. perhaps of the lower dose depending on heart rate. -Serial troponin levels TYPE 2 DIABETES MELLITUS -Continue outpatient dose of long-acting insulin -4 times a day glucometers -Moderate dose sliding scale NovoLog ATRIAL FIBRILLATION -Hold rate slowing medication as above -Continue oral anticoagulation with warfarin COPD-no evidence of acute exacerbation or underlying infection on exam and by history -Continue outpatient medical therapy CHRONIC KIDNEY DISEASE STAGE III -Closely monitor her kidney function and urine output during hospital stay MAINTENANCE ISSUES -DVT prophylaxis; current therapy with warfarin should provide adequate DVT prophylaxis -GI prophylaxis; not indicated -Laboy catheter; not indicated -Nutrition; consistent carbohydrate and 2 g sodium diet -Nicotinic dependence; not required CODE STATUS-FULL CODE ADMISSION STATUS-this patient will be admitted to observation status, expect no more than a one night hospital stay for evaluation and management of problems as outlined above. DISPOSITION-anticipate discharge to home after the hospital stay. PRIMARY CARE PROVIDER-Dr. Orellana
[2016-11-05] MEDS ORDERED: Furosemide 20 MG/2 ML VIAL IV ONE (10:30)
[2016-11-05] MEDS: Insulin Aspart 100 Units/ML 3 ML Pen SUBCUT SCH ×3 (11:33→20:51)
[2016-11-05] MEDS ORDERED: WARFARIN 5 MG PO SCH (13:00)
[2016-11-05] MEDS: Insulin Detemir 100 Units/ML 3 ML Pen SUBCUT SCH (20:50)
[2016-11-06] MEDS: Tiotropium Inhaler 18 MCG Inhalation Powder Cap Kit of 5 INH SCH (08:00)
[2016-11-06] MEDS: CITALOPRAM 10 MG PO SCH (08:08)
[2016-11-06] MEDS: Finasteride 5 MG Tab**POM PO SCH (08:09)
[2016-11-06] MEDS: Tamsulosin 0.4 MG Cap.ER**POM PO SCH (08:09)
[2016-11-06] MEDS: Aspirin 81 MG Tab.EC**POM PO SCH (08:09)
[2016-11-06] MEDS: METOPROLOL TART 100MG (PTOM) PO SCH (08:09)
[2016-11-06] MEDS: LISINOPRIL 40 MG PO SCH (08:10)
[2016-11-06] MEDS: Insulin Aspart 100 Units/ML 3 ML Pen SUBCUT SCH (08:14)
[2016-11-06 08:23] VITALS: BP 139/63
--- NOTE | 2016-11-06 09:19 | PCM.DCSUM1 ---
Discharge Summary - Hospital Course Brief History: Mr. Ayon is a 71-year-old gentleman who was admitted through the emergency department with exertional shortness of breath and lightheadedness secondary to atrial fibrillation with slow ventricular response. - Discharge Data Discharge Date: 11/06/16 Discharge Disposition: Home, Self-Care 01 Condition: Good - Discharge Diagnosis/Problem(s) (1) Bradycardia SNOMED Code(s): 56302002 ICD Code: R00.1 - BRADYCARDIA, UNSPECIFIED Status: Acute Current Visit: Yes (2) Atrial fibrillation SNOMED Code(s): 19075236 ICD Code: I48.91 - UNSPECIFIED ATRIAL FIBRILLATION Status: Acute Current Visit: Yes - Patient Summary/Data Hospital Course: This patient has had a known and long-standing history of atrial fibrillation, he is been on oral anticoagulation with warfarin as well as rate slowing medication with metoprolol, verapamil, and digoxin. For a period of a few weeks prior to admission he noted increased shortness of breath with decreased exercise tolerance and symptoms of lightheadedness. On the morning of admission noted marked shortness of breath with minimal exertion. On evaluation in the emergency department he was found to have atrial fibrillation with very slow heart rates into the upper 30s and low 40s. Slow heart rate was thought to be likely secondary to medication effect in addition to some developing conduction disease within the heart. All other rate slowing medications were held on admission and he was given IV Lasix in the emergency department. By the following morning his heart rate did come up into the 60s and 70s, metoprolol was restarted at 100 mg twice daily. Digoxin and verapamil remain on hold and will be discontinued at the time of discharge. He remained stable with adequate heart rates over the next 24 hours and will be discharged home this morning. Echocardiogram has been scheduled for tomorrow and will be changed to an outpatient study. Activity will be as tolerated and he will resume his usual diabetic diet. Glucose levels were monitored throughout his hospital stay. Follow-up appointment will be scheduled with Dr. Orellana within one week. Patient will monitor blood pressure and heart rate twice daily, record the results, and bring them in for Dr. Orellana to review. - Patient Instructions Diet: Usual Diet as Tolerated Activity: As Tolerated Other/Special Instructions: Please schedule follow-up appointment with Dr. Orellana within one week. Outpatient echocardiogram tomorrow to evaluate left ventricular function and chamber sizes. - Discharge Plan Home Medications: Home Meds Citalopram Hydrobromide [Celexa] 10 tab PO DAILY 04/12/15 [History] Insulin Aspart [NovoLOG] 10 units SQ ASDIRECTED 04/12/15 [History] Insulin Glarg,Human.Rec.Analog [Lantus Solostar] 56 unit SQ BEDTIME 04/12/15 [ History] Lisinopril 40 mg PO DAILY 04/12/15 [History] Metoprolol Tartrate 100 tab PO BID 04/12/15 [History] Tamsulosin [Flomax] 0.4 mg PO DAILY 04/12/15 [History] Warfarin [Coumadin] 5 tab PO DAILY 04/12/15 [History] Albuterol [Proventil HFA] 6.7 gm IN Q4HR PRN 11/04/16 [History] Aspirin [Lo-Dose Aspirin EC] 81 mg PO DAILY 11/04/16 [History] Finasteride [Proscar] 5 mg PO DAILY 11/04/16 [History] Tiotropium [Spiriva Handihaler] 18 mcg IN DAILY 11/04/16 [History] Referrals: James Orellana MD [Primary Care Provider] - - Patient Data Vitals - Most Recent: Last Vital Signs Temp 97.0 F 11/06/16 03:00 Pulse 64 11/06/16 07:00 Resp 16 11/06/16 07:00 BP 139/63 11/06/16 07:00 Pulse Ox 97 11/06/16 07:00 Weight - Most Recent: 229 lb 4.492 oz I&O - Last 24 hours: Intake & Output 11/05/16 11/06/16 11/06/16 22:59 06:59 14:59 Output Total 1250 1200 Balance -1250 -1200 Med Orders - Current: Current Medications Acetaminophen (Tylenol) 650 mg PO Q4H PRN PRN Reason: Pain (Mild 1-3)/fever Albuterol (Ventolin Hfa) 0 gm INH Q4H PRN PRN Reason: breathing Albuterol (Proventil Neb Soln) 2.5 mg NEB Q4H PRN PRN Reason: Shortness Of Breath/wheezing Aspirin (Halfprin) 81 mg PO DAILY [facility] Last Admin: 11/06/16 08:09 Dose: 81 mg Citalopram Hydrobromide (Celexa) 0 mg PO DAILY [facility] Last Admin: 11/06/16 08:08 Dose: 20 mg Dextrose (Glutose 15) 15 gm PO ONETIME PRN PRN Reason: Hypoglycemia Dextrose/Water (Dextrose 50% In Water) 50 ml IV ONETIME PRN PRN Reason: Hypoglycemia Docusate Sodium (Colace) 100 mg PO BID PRN PRN Reason: Constipation Finasteride (Proscar) 5 mg PO DAILY [facility] Last Admin: 11/06/16 08:09 Dose: 5 mg Insulin Aspart (Novolog) 0 unit SUBCUT ASDIRECTED [facility] PRN Reason: Protocol Last Admin: 11/06/16 08:14 Dose: 2 units Insulin Detemir (Levemir) 56 unit SUBCUT BEDTIME [facility] Last Admin: 11/05/16 20:50 Dose: 56 units Magnesium Hydroxide (Milk Of Magnesia) 30 ml PO Q12H PRN PRN Reason: Constipation Ondansetron HCl (Zofran) 4 mg IV Q4H PRN PRN Reason: Nausea/Vomiting Oxycodone HCl (Oxycodone) 5 mg PO Q4H PRN PRN Reason: Pain (moderate 4-6) Lisinopril 40mg Tabs (Pom) 0 each PO DAILY [facility] Last Admin: 11/06/16 08:10 Dose: 1 each Metoprolol Tart (100mg (Ptom)) 0 each PO BID [facility] Last Admin: 11/06/16 08:09 Dose: 1 each Polyethylene Glycol (Miralax) 17 gm PO DAILY PRN PRN Reason: Constipation Sodium Chloride (Saline Flush) 10 ml FLUSH ASDIRECTED PRN PRN Reason: Keep Vein Open Tamsulosin HCl (Flomax) 0.4 mg PO DAILY [facility] Last Admin: 11/06/16 08:09 Dose: 0.4 mg Tiotropium [place] (Spiriva Handihaler) 18 mcg INH DAILY [facility] Last Admin: 11/06/16 08:00 Dose: 1 cap Warfarin Sodium (Coumadin) 5 mg PO SuTuWeThSa@1300 [facility] Last Admin: 11/05/16 12:54 Dose: 5 mg Warfarin Sodium (Coumadin) 0 mg PO MoFr@1300 [facility] Zolpidem Tartrate (Ambien) 5 mg PO BEDTIME PRN PRN Reason: Sleep Discontinued Medications Furosemide (Lasix) 40 mg IVPUSH ONETIME ONE Stop: 11/04/16 14:23 Last Admin: 11/04/16 14:43 Dose: 40 mg Furosemide (Lasix) 20 mg IV NOW ONE Stop: 11/05/16 10:31 Last Admin: 11/05/16 12:31 Dose: 20 mg Sodium Chloride (Saline Flush) 10 ml FLUSH ASDIRECTED PRN PRN Reason: Keep Vein Open Last Admin: 11/04/16 13:52 Dose: 10 ml *Q Meaningful Use (DIS) - VTE *Q VTE Criteria *Q: VTE Pharmacological Contraindications *Q: High INR Value - Stroke *Q Stroke Criteria *Q: - AMI *Q AMI Criteria *Q:
[2016-11-08] MEDS ORDERED: WARFARIN 5 MG PO SCH (13:00)
== END 2016-11-06 10:25 | disposition home or self-care (01) ==
LOC: JP.ED 12:16 → JP.ICU 16:01
PROVIDERS: ADMIT Hospitalist; ATTEND Hospitalist
DX: R00.1 Bradycardia, unspecified (principal); I48.91 Unspecified atrial fibrillation; E11.9 Type 2 diabetes mellitus without complications; E78.00 Pure hypercholesterolemia, unspecified; J44.9 Chronic obstructive pulmonary disease, unspecified; Z79.01 Long term (current) use of anticoagulants; Z79.4 Long term (current) use of insulin; Z79.82 Long term (current) use of aspirin; Z79.899 Other long term (current) drug therapy; Z91.040 Latex allergy status; Z88.8 Allergy status to other drugs, medicaments and biological substances; Z98.890 Other specified postprocedural states
CPT/HCPCS: 36415; 71020; 80053; 80162; 81001; 82962; 83880; 84443; 84484; 85025; 85610; 85730; 93005; 94640; 94664; 96374; 96376; 99285; A9270; G0378; J1940; J7050

== ENCOUNTER 2019-09-05 16:59 | Emergency (ER) | payer BC ==
--- NOTE | 2019-09-05 17:38 | EDM.PDOC ---
ED HPI GENERAL MEDICAL PROBLEM - General Stated Complaint: TICK BITE Time Seen by Provider: 09/05/19 17:30 Source of Information: Reports: Patient, RN Notes Reviewed History Limitations: Reports: No Limitations - History of Present Illness INITIAL COMMENTS - FREE TEXT/NARRATIVE: 74-year-old gentleman presents emergency department a after removing a tick from his right lower extremity he states the tick was probably attached 2 days it still alive and walking he is not having symptoms at this time - Related Data Allergies Allergy/AdvReac Type Severity Reaction Status Date / Time latex Allergy Rash Verified 11/04/16 12:32 Furjucq-Lfn-Uvl Reductase AdvReac Muscle Verified 11/04/16 12:32 Inhibitor Aches Home Meds: Home Meds Citalopram Hydrobromide [Celexa] 10 tab PO DAILY 04/12/15 [History] Insulin Aspart [NovoLOG] 10 units SQ ASDIRECTED 04/12/15 [History] Insulin Glarg,Human.Rec.Analog [Lantus Solostar] 56 unit SQ BEDTIME 04/12/15 [ History] Lisinopril 40 mg PO DAILY 04/12/15 [History] Metoprolol Tartrate 100 tab PO BID 04/12/15 [History] Tamsulosin [Flomax] 0.4 mg PO DAILY 04/12/15 [History] Warfarin [Coumadin] 5 tab PO DAILY 04/12/15 [History] Albuterol [Proventil HFA] 6.7 gm IN Q4HR PRN 11/04/16 [History] Aspirin [Lo-Dose Aspirin EC] 81 mg PO DAILY 11/04/16 [History] Finasteride [Proscar] 5 mg PO DAILY 11/04/16 [History] Tiotropium [Spiriva Handihaler] 18 mcg IN DAILY 11/04/16 [History] Past Medical History HEENT History: Reports: Impaired Vision Cardiovascular History: Reports: Afib, High Cholesterol Respiratory History: Reports: COPD Genitourinary History: Reports: Other (See Below) Other Genitourinary History: kidney biopsy Psychiatric History: Reports: Other (See Below) Other Psychiatric History: PSPD Endocrine/Metabolic History: Reports: Diabetes, Type II - Past Surgical History Musculoskeletal Surgical History: Reports: Arthroscopic Knee, Hip Replacement Social & Family History - Tobacco Use Smoking Status *Q: Never Smoker ED ROS GENERAL - Review of Systems Review Of Systems: See Below Constitutional: Reports: No Symptoms Skin: Reports: Wound ED EXAM, GENERAL - Physical Exam Exam: See Below Free Text/Narrative:: Examination of the tick it appears to be a wood tick not a deer tick Exam Limited By: No Limitations General Appearance: Alert, WD/WN, No Apparent Distress Respiratory/Chest: No Respiratory Distress Departure - Departure Time of Disposition: 17:38 Disposition: Home, Self-Care 01 Condition: Good Clinical Impression: Tick bite of right lower leg Qualifiers: Encounter type: initial encounter Qualified Code(s): S80.861A - Insect bite ( nonvenomous), right lower leg, initial encounter; W57.XXXA - Bitten or stung by nonvenomous insect and other nonvenomous arthropods, initial encounter - Discharge Information Instructions: Tick Bite Information, Adult, [id number] Referrals: James Orellana MD [Primary Care Provider] - Additional Instructions: Take 200 mg of doxycycline 1 time,, please followup with your primary care provider in 3-5 days if not better, please call return to the emergency department with worsening of symptoms. - Assessment/Plan Plan: Assessment Acuity = acute Site and laterality = tick bite right lower leg Etiology = wood tick Manifestations = none Location of injury = Home Lab values = none Plan , He was uncomfortable with a diagnosis of wood tick therefore I did offer him treatment doxycycline 200 mg x 1 him follow-up with his primary care in the next 3 to 5 days any symptom development This note was dictated using [employer] voice recognition software please call with any questions on syntax or grammar.
[2019-09-05 17:55] VITALS: BP 170/94; PULSE 82
== END 2019-09-05 18:03 | disposition home or self-care (01) ==
LOC: JP.ED 16:59
DX: S80.861A Insect bite (nonvenomous), right lower leg, initial encounter (principal); I48.91 Unspecified atrial fibrillation; E78.00 Pure hypercholesterolemia, unspecified; J44.9 Chronic obstructive pulmonary disease, unspecified; E11.9 Type 2 diabetes mellitus without complications; Z88.8 Allergy status to other drugs, medicaments and biological substances; Z91.040 Latex allergy status; Z79.899 Other long term (current) drug therapy; Z79.4 Long term (current) use of insulin; Z79.01 Long term (current) use of anticoagulants; Z79.82 Long term (current) use of aspirin; W57.XXXA Bitten or stung by nonvenomous insect and other nonvenomous arthropods, initial encounter
CPT/HCPCS: 99283

== ENCOUNTER 2020-10-26 07:43 | Day surgery (SDC) | payer BC, OTHER ==
[2020-10-26] MEDS ORDERED: Propofol 200 MG/20 ML SDV ONE ×2 (07:58→09:52)
[2020-10-26] MEDS ORDERED: Midazolam 1 MG/ML 2 ML SDV ONE (07:58)
[2020-10-26] MEDS ORDERED: fentaNYL 100 MCG/2 ML SDV ONE (07:58)
[2020-10-26] MEDS ORDERED: Sodium Chloride 0.9% 1,000 ML IV SCH (08:30)
[2020-10-26 11:19] VITALS: BP 145/81; PULSE 79
--- NOTE | 2020-10-27 15:33 | OR ---
DATE OF PROCEDURE: 10/27/2020 SURGEON: Jameson Cody MD PROCEDURE: Colonoscopy. FINDINGS: 1. Ascending colon polyp, approximately 1 cm, completely removed using endoscopic mucosal resection. 2. Ascending colon polyp #2, completely removed using hot snare wire device. 3. Transverse colon polyp #1, completely removed using cold biopsy forceps. 4. Transverse colon polyp #2, completely removed using snare device. 5. Descending colon polyp #1, completely removed using cold biopsy forceps, approximately 5 mm. 6. Diverticulosis, moderate, mostly densely concentrated in a classic pattern in sigmoid colon. COMPLICATIONS: None. WAFER POLISHER: None. PREOPERATIVE DIAGNOSIS: Screening colonoscopy. POSTOPERATIVE DIAGNOSIS: Screening colonoscopy. RISKS: Risks, benefits, alternatives, and limitations including but not limited to infection, bleeding, perforation, and false positives and false negatives were explained to the patient who wished to proceed. PROCEDURE IN DETAIL: The patient was placed in left lateral decubitus position. Digital rectal exam was performed without abnormality. Scope was introduced and advanced atraumatically to the ileocecal valve. Photo was taken of the appendiceal orifice. With respect to the ascending colon polyp #1, this was excised using endoscopic mucosal resection, which was elevating this with Jennifer ink. This was then removed using hot snare wire device. No abnormalities noted. There was a significant mucosal defect on removal of the aforementioned polyp. Therefore, endoscopic clips x4 were used to bridge the mucosal defect. All the other polyps removed as described above. No abnormalities were noted during removal. The diverticulosis was described as moderate, limited to sigmoid colon mostly in a classic pattern without evidence of diverticulitis or bleeding. Greater than 8 minutes was spent removing the scope. The prep was acceptable, approximately 90% of luminal surface could be seen. The patient tolerated the procedure well. Jameson Cody MD /[id number]
== END 2020-10-26 11:21 | disposition home or self-care (01) ==
LOC: JP.SDS 07:43
PROVIDERS: ATTEND Surgery
DX: Z12.11 Encounter for screening for malignant neoplasm of colon (principal); D12.2 Benign neoplasm of ascending colon; D12.4 Benign neoplasm of descending colon; D12.3 Benign neoplasm of transverse colon; K57.30 Diverticulosis of large intestine without perforation or abscess without bleeding; I10 Essential (primary) hypertension; I25.10 Atherosclerotic heart disease of native coronary artery without angina pectoris; I48.91 Unspecified atrial fibrillation; Z86.711 Personal history of pulmonary embolism; Z88.8 Allergy status to other drugs, medicaments and biological substances
CPT/HCPCS: 45380; 45381; 45385; J2250; J2704; J3010; J7030

== ENCOUNTER 2024-07-03 08:47 | Emergency (ER) | payer BC, OTHER ==
[2024-07-03 09:19] VITALS: BP 154/83; PULSE 72
== END 2024-07-03 10:30 | disposition home or self-care (01) ==
LOC: JP.ED 08:47
DX: I10 Essential (primary) hypertension (principal); I48.91 Unspecified atrial fibrillation; J44.9 Chronic obstructive pulmonary disease, unspecified; E11.9 Type 2 diabetes mellitus without complications; Z79.4 Long term (current) use of insulin; Z79.82 Long term (current) use of aspirin; Z79.01 Long term (current) use of anticoagulants; Z79.51 Long term (current) use of inhaled steroids; Z79.899 Other long term (current) drug therapy; Z91.040 Latex allergy status; Z88.8 Allergy status to other drugs, medicaments and biological substances
CPT/HCPCS: 99283